=== PATIENT | male | born 1955 | race Caucasian/White ===

== ENCOUNTER → 2016-11-29 | Outpatient (CLI) | payer OTHER | LOC: FIMAGING 09:39 | PROVIDERS: ATTEND Family Medicine Sports Medicine | DX: M48.52XA Collapsed vertebra, not elsewhere classified, cervical region, initial encounter for fracture (principal) ==

== ENCOUNTER → 2017-08-21 | Outpatient (CLI) | payer OTHER | LOC: FIMAGING 17:01 | PROVIDERS: ATTEND Family Medicine Sports Medicine | DX: M24.851 Other specific joint derangements of right hip, not elsewhere classified (principal); M24.852 Other specific joint derangements of left hip, not elsewhere classified ==

== ENCOUNTER → 2017-09-20 | Outpatient (CLI) | payer OTHER | LOC: BMCIMAGING 16:19 | PROVIDERS: ATTEND Family Medicine | DX: K82.4 Cholesterolosis of gallbladder (principal); K76.9 Liver disease, unspecified ==

== ENCOUNTER 2018-04-11 13:40 | Emergency (ER) | payer OTHER ==
--- NOTE | 2018-04-11 14:35 | EDPHY ---
H & P Stated Complaint: dizzy, palpitations Time Seen by Provider: 04/11/18 14:35 HPI/ROS: HPI CHIEF COMPLAINT: Lightheadedness, palpitations HISTORY OF PRESENT ILLNESS: Very pleasant 62-year-old male, history of hypertension, has a longstanding history of palpitations, patient states since 2005 he suffered from 40 different episodes of heart palpitations. Also suffers from anxiety. Patient presents emergency room today for palpitations, feeling anxious. He took Valium 5 mg prior to arrival. He denies any chest pain or shortness of breath. Did state that he felt his heart rate racing, numbness and tingling in his hands. He arrives to the emergency room he states he is much better now. He does suffer from high blood pressure. Past Medical History: Hypertension, history palpitations, anxiety Past Surgical History: Prostate surgery, testicular surgery for testicular torsion Social History: Denies drugs alcohol tobacco. Family History: Noncontributory ROS REVIEW OF SYSTEMS: 10 Systems were reviewed and negative with the exception of the elements mentioned in the history of present illness. Exam Constitutional appears well nontoxic no acute distress, triage nursing summary reviewed, vital signs reviewed, awake/alert. Eyes normal conjunctivae and sclera, EOMI, PERRLA. HENT normal inspection, atraumatic, moist mucus membranes, no epistaxis, neck supple/ no meningismus, no raccoon eyes. Respiratory clear to auscultation bilaterally, normal breath sounds, no respiratory distress, no wheezing. Cardiovascular rate normal, regular rhythm, no murmur, no edema, distal pulses normal. Gastrointestinal soft, non-tender, no rebound, no guarding, normal bowel sounds, no distension, no pulsatile mass. Genitourinary no CVA tenderness. Musculoskeletal no midline vertebral tenderness, full range of motion, no calf swelling, no tenderness of extremities, no meningismus, good pulses, neurovascularly intact. Skin pink, warm, & dry, no rash, skin atraumatic. Neurologic awake, alert and oriented x 3, AAOx3, moves all 4 extremities equally, motor intact, sensory intact, CN II-XII intact, normal cerebellar, normal vision, normal speech. Psychiatric normal mood/affect. Heme/Lymph/Immune no lymphadenopathy. Differential Diagnosis: Includes but is not limited to in a particular order anxiety attack, panic attack, cardiac arrhythmia, dehydration, electrolyte disturbance. Doubt ACS, doubt PE. 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 Re-evaluation: EKG interpretation by me on record in [facility] system. Impression time of EKG 1426, sinus rhythm rate of 63 no signs of acute ischemia no ST elevation no ST depression. When I compare this patient's EKG to his old EKG dated 2015 unchanged morphology. Troponin 0.00 D-dimer negative. EKG interpretation by me on record in [facility] system. Impression time of EKG 17 10, sinus rhythm rate of 50 no acute ischemia no ST elevation no ST depression no T-wave abnormalities unremarkable EKG. 2nd troponin 0.01 The patient has had serial EKGs here to with out any chest pain. The patient's EKGs are nonischemic there is no ST elevation no ST depression. Isolated T- wave inversion lead 3. Flattening in AVF and appears very similar to his previous EKGs 01/08/2016. No acute change. The patient denies any chest pain Re-evaluation at 5:47 p.m. He is resting comfortably. The patient is requesting discharge. He wants to go home. His workup for anxiety, palpitations, numbness and tingling is unremarkable here in the emergency room. However I did discussed return precautions with him he develops worsening palpitations, chest pain, shortness of breath, syncope, not feeling well I needs return emergency room. I do recommend he follows up with his primary care doctor as well. He agrees. Source: Patient - Personal History Current Tetanus/Diphtheria Vaccine: Yes Current Tetanus Diphtheria and Acellular Pertussis (TDAP): Yes - Medical/Surgical History Hx Asthma: No Hx Chronic Respiratory Disease: No Hx Diabetes: No Hx Cardiac Disease: No Hx Renal Disease: No Hx Cirrhosis: No Hx Alcoholism: No Hx HIV/AIDS: No Hx Splenectomy or Spleen Trauma: No Other PMH: HYPERLIPIDEMIA,ORCHIECTOMY,TURP, anxiety, hot flashes, HTN - Social History Smoking Status: Never smoked Constitutional: Initial Vital Signs Temperature (C) 36.5 C 04/11/18 13:46 Heart Rate 82 04/11/18 13:46 Respiratory Rate 16 04/11/18 13:46 Blood Pressure 180/93 H 04/11/18 13:46 O2 Sat (%) 97 04/11/18 13:46 O2 Delivery Mode Room Air Allergies/Adverse Reactions: Sulfa (Sulfonamide Antibiotics) Allergy (Intermediate, Verified 04/11/18 13:45) Home Medications: Medication Instructions Recorded Aspirin [Aspirin 81mg (*)] 81 mg PO DAILY 01/08/16 Herbals/Supplements -Info Only 1 tab PO AD 01/08/16 Rosuvastatin Calcium [Crestor] 10 mg PO DAILY 01/08/16 Acetaminophen [Tylenol 325mg (*)] 650 mg PO Q4 PRN #0 tab 01/09/16 clonazePAM [CLONAZEPAM] 1 mg PO BID PRN #20 tab 01/09/16 Lisinopril 04/11/18 Medical Decision Making - Diagnostics Imaging Results: Imaging Impressions Chest X-Ray 04/11/18 14:47 Impression: Nothing acute identified. - Data Points Laboratory Results: Laboratory Results 04/11/18 14:31 04/11/18 14:31 04/11/18 04/11/18 04/11/18 17:14 14:38 14:31 WBC RBC Hgb Hct MCV MCH MCHC RDW Plt Count MPV Neut % (Auto) Lymph % (Auto) Tift % (Auto) Eos % (Auto) Baso % (Auto) Nucleat RBC Rel Count Absolute Neuts (auto) Absolute Lymphs (auto) Absolute Monos (auto) Absolute Eos (auto) Absolute Basos (auto) Absolute Nucleated RBC Immature Gran % Immature Gran # PT INR APTT D-Dimer Sodium 141 mEq/L mEq/L (135-145) Potassium 4.1 mEq/L mEq/L (3.5-5.2) Chloride 105 mEq/L mEq/L (97-110) Carbon Dioxide 27 mEq/l mEq/l (22-31) Anion Gap 9 mEq/L mEq/L (6-14) BUN 19 mg/dL mg/dL (7-23) Creatinine 1.1 mg/dL mg/dL (0.7-1.3) Estimated GFR > 60 Glucose 124 mg/dL H mg/dL (70-100) Calcium 9.3 mg/dL mg/dL (8.5-10.4) Magnesium 2.1 mg/dL mg/dL (1.6-2.3) Total Bilirubin 0.9 mg/dL mg/dL (0.1-1.4) Conjugated Bilirubin 0.3 mg/dL mg/dL (0.0-0.5) Unconjugated Bilirubin 0.6 mg/dL mg/dL (0.0-1.1) AST 32 IU/L IU/L (17-59) ALT 38 IU/L IU/L (21-72) Alkaline Phosphatase 72 IU/L IU/L (38-126) POC Troponin I 0.01 ng/mL ng/mL 0.00 ng/mL ng/mL (0.00-0.08) (0.00-0.08) NT-Pro-B Natriuret Pep 26 pg/mL pg/mL (0-125) Total Protein 6.9 g/dL g/dL (6.3-8.2) Albumin 4.3 g/dL g/dL (3.5-5.0) Lipase 153 IU/L IU/L (23-300) 04/11/18 04/11/18 14:31 14:31 WBC 3.80 10^3/uL 10^3/uL (3.80-9.50) RBC 5.80 10^6/uL 10^6/uL (4.40-6.38) Hgb 17.0 g/dL g/dL (13.7-17.5) Hct 48.7 % % (40.0-51.0) MCV 84.0 fL fL (81.5-99.8) MCH 29.3 pg pg (27.9-34.1) MCHC 34.9 g/dL g/dL (32.4-36.7) RDW 13.6 % % (11.5-15.2) Plt Count 130 10^3/uL L 10^3/uL (150-400) MPV 9.5 fL fL (8.7-11.7) Neut % (Auto) 60.0 % % (39.3-74.2) Lymph % (Auto) 27.9 % % (15.0-45.0) Tift % (Auto) 8.9 % % (4.5-13.0) Eos % (Auto) 1.6 % % (0.6-7.6) Baso % (Auto) 0.5 % % (0.3-1.7) Nucleat RBC Rel Count 0.0 % % (0.0-0.2) Absolute Neuts (auto) 2.28 10^3/uL 10^3/uL (1.70-6.50) Absolute Lymphs (auto) 1.06 10^3/uL 10^3/uL (1.00-3.00) Absolute Monos (auto) 0.34 10^3/uL 10^3/uL (0.30-0.80) Absolute Eos (auto) 0.06 10^3/uL 10^3/uL (0.03-0.40) Absolute Basos (auto) 0.02 10^3/uL 10^3/uL (0.02-0.10) Absolute Nucleated RBC 0.00 10^3/uL 10^3/uL (0-0.01) Immature Gran % 1.1 % % (0.0-1.1) Immature Gran # 0.04 10^3/uL 10^3/uL (0.00-0.10) PT 13.2 SEC SEC (12.0-15.0) INR 0.98 (0.83-1.16) APTT 30.3 SEC SEC (23.0-38.0) D-Dimer 0.28 ug/mLFEU ug/mLFEU (0.00-0.50) Sodium Potassium Chloride Carbon Dioxide Anion Gap BUN Creatinine Estimated GFR Glucose Calcium Magnesium Total Bilirubin Conjugated Bilirubin Unconjugated Bilirubin AST ALT Alkaline Phosphatase POC Troponin I NT-Pro-B Natriuret Pep Total Protein Albumin Lipase Medications Given: Discontinued Medications Sodium Chloride (Ns) 1,000 mls @ 0 mls/hr IV EDNOW ONE; Wide Open PRN Reason: Protocol Stop: 04/11/18 14:48 Last Admin: 04/11/18 16:33 Dose: Not Given Point of Care Test Results: Chemistry 04/11/18 04/11/18 17:14 14:38 POC Troponin I 0.01 ng/mL ng/mL 0.00 ng/mL ng/mL (0.00-0.08) (0.00-0.08) Departure - Departure Disposition: Home, Routine, Self-Care Clinical Impression: Palpitations, Anxiety Condition: Good Instructions: Heart Palpitations (ED), Anxiety (ED) Additional Instructions: 1. Make sure to drink lots of fluids 2. Take it easy. 3. Return emergency room if worsening symptoms questions or concerns. Referrals: Tyler Roberts MD [Primary Care Provider] - As per Instructions
[2018-04-11] MEDS ORDERED: NS 1,000 ML IV ONE (14:47)
[2018-04-11 14:56] LABS: PLATELET COUNT 130 10^3/uL (150-400)
[2018-04-11 15:04] LABS: INR 0.98 (0.83-1.16); PROTIME(PATIENT) 13.2 SEC (12.0-15.0)
[2018-04-11 18:04] VITALS: BP 139/85
--- NOTE | 2018-04-11 22:34 | CPEKG ---
Test Reason : OPEN Blood Pressure : / mmHG Vent. Rate : 050 BPM Atrial Rate : 049 BPM P-R Int : 170 ms QRS Dur : 102 ms QT Int : 465 ms P-R-T Axes : 045 -04 -02 degrees QTc Int : 424 ms Sinus rhythm Probable left atrial enlargement Borderline T abnormalities, inferior leads Confirmed by Jl Lamas ([id number]) on 04/11/2018 10:33:54 PM Referred By: Confirmed By:Jl Lamas
--- NOTE | 2018-04-12 08:54 | CPEKG ---
Test Reason : OPEN Blood Pressure : / mmHG Vent. Rate : 063 BPM Atrial Rate : 063 BPM P-R Int : 170 ms QRS Dur : 101 ms QT Int : 445 ms P-R-T Axes : 047 -06 002 degrees QTc Int : 456 ms Sinus rhythm Probable left atrial enlargement Borderline T wave abnormalities Confirmed by Tian Castillo ([id number]) on 04/12/2018 8:54:37 AM Referred By: Confirmed By:Tian Castillo
== END 2018-04-11 18:03 | disposition home or self-care (01) ==
DX: R00.2 Palpitations (principal); F41.9 Anxiety disorder, unspecified; R42 Dizziness and giddiness; I10 Essential (primary) hypertension; E78.5 Hyperlipidemia, unspecified; Z88.2 Allergy status to sulfonamides
CPT/HCPCS: 84484-ER